=== PATIENT | female | born 1985 | race Caucasian/White ===

== ENCOUNTER 2020-01-09 00:33 | Emergency (ER) | payer MEDICAID ==
[~2020-01-09] VITALS: Ht 170.2 cm; Wt 55.4 kg
[2020-01-09] MEDS ORDERED: PROZAC20 M1 PO (00:47)
[2020-01-09] MEDS ORDERED: OMEPRAZOLE 20 M20 M1 PO (00:47)
[2020-01-09 01:06] LABS: HEMATOCRIT 37.5 % (37.0-47.0); HEMOGLOBIN 12.8 gm/dL (12.0-15.0); MCH 32.7 pg (26.0-34.0); MCHC 34.2 g/dL (28.0-37.0); MCV 95.5 fL (80.0-100.0); MPV 7.7 fl. (7.2-11.1); RBC 3.92 mil/uL (4.20-5.00); RDW-CV 13.3 % (10.5-14.5); WBC 8.1 thou/uL (4.0-11.0)
[2020-01-09 01:13] LABS: CALCIUM 8.6 mg/dL (8.5-10.1); CREATININE 0.6 mg/dL (0.6-1.3); POTASSIUM 3.2 mmol/L (3.5-5.1)
[2020-01-09 01:18] LABS: ALBUMIN 3.5 g/dL (3.4-5.0); TOTAL BILIRUBIN 0.2 mg/dL (<0.1-1.0)
[2020-01-09 01:37] LABS: ALCOHOL 109 mg/dL (<10); SALICYLATE 4.5 mg/dL (2.8-20.0)
[2020-01-09 01:38] LABS: ACETAMINOPHEN < 2 ug/mL (10-30)
[2020-01-09 03:03] LABS: URINE BILIRUBIN NEGATIVE (Negative); URINE BLOOD 1+ (Negative); URINE CLARITY CLEAR; URINE COLOR YELLOW; URINE GLUCOSE-RANDOM NEGATIVE (Negative); URINE KETONES NEGATIVE (Negative); URINE LEUKOCYTES NEGATIVE (Negative); URINE NITRITE NEGATIVE (Negative); URINE PROTEIN NEGATIVE (Negative); URINE UROBILINOGEN 0.2 E.U./dl (0.2-1.0)
[2020-01-09 03:15] LABS: AMP/METHAMP Negative (Negative); BARBITURATES Negative (Negative); BENZODIAZEPINES POSITIVE (Negative); COCAINE Negative (Negative); METHADONE Negative (Negative); OPIATES Negative (Negative); PCP Negative (Negative); THC Negative (Negative)
[2020-01-09 03:33] LABS: SQUAMOUS 0-3 Few /LPF (0-3); URINE RBC 3-10 Few /HPF (0-2); URINE WBC 0-5 Rare /HPF (0-5)
[2020-01-09 03:34] LABS: CASTS None Seen /LPF (None Seen); CRYSTALS None Seen /LPF (None Seen); MUCUS >6 Heavy strn/LPF (None Seen)
[2020-01-09 04:04] VITALS: BP 105/56
--- NOTE | 2020-01-09 16:37 | EKG ---
[place] [address] ELECTROCARDIOGRAM REPORT Name: ZACARIAS JONES Room: [facility]#: [id number] Admission: 01/09/20 Attend Phys: Discharge: 01/09/20 Date of : 81 Date of Service: 01/09/20118 Report #: [id number] THIS REPORT FOR: //name// [facility] ED Test Date: 2020-01-09 Test Time: 01:19:53 Pat Name: ZACARIAS JONES Department: Room: Gender: Manager [employer]ofing: : 1985 Requested By: [place] Order Number: [id number] MD: Izaiah Bender Measurements Intervals [place] Rate: 91 P: 82 PA: 179 QRS: 71 QRSD: 68 T: 74 QT: 361 QTc: 445 Interpretive Statements Sinus rhythm Probable left atrial enlargement No previous ECG available for comparison Electronically Signed On 01-09-2020 16:36:31 CDT by Izaiah Bender [email or web address] <ELECTRONICALLY SIGNED> By: Izaiah Bender MD, [facility] 01/09/20 1636 8 8 Izaiah Bender MD, FACC /EPI
== END 2020-01-09 04:05 | disposition home or self-care (01) ==
LOC: M.ERS 00:33 → EDSEX 00:33 → M.ERS 04:05
PROVIDERS: Personal Emergency Response Attendant
DX: F10.129 Alcohol abuse with intoxication, unspecified (principal); F41.9 Anxiety disorder, unspecified; Z88.8 Allergy status to other drugs, medicaments and biological substances; Y90.5 Blood alcohol level of 100-119 mg/100 ml